=== PATIENT | female | born 2005 | race Caucasian/White ===

== ENCOUNTER 2023-05-07 01:59 | Emergency (ER) | payer OTHER ==
[~2023-05-07] VITALS: Ht 162.6 cm; Wt 68.0 kg
[2023-05-07 02:17] VITALS: TEMP 98.8; O2SAT 99
[2023-05-07] MEDS ORDERED: HYDROCODONE/ACETAMINOPHEN 5/325MG TABLET PO ONE (04:30)
[2023-05-07] MEDS ORDERED: SODIUM CHLORIDE 0.9% 500 ML IV ONE (04:30)
[2023-05-07 05:06] LABS: BASOPHILS % 0.6 % (0.0-2.0); EOSINOPHILS % 0.6 % (0.0-5.0); HEMOGLOBIN. 13.8 g/dL (12.0-16.0); LYMPHOCYTES % 16.7 % (20.0-50.0); MEAN CORPUSCULAR HEMOGLOBIN 32.7 pg (28.0-32.0); MEAN CORPUSCULAR HGB CONC 33.7 g/dL (31.0-37.0); MEAN PLATELET VOLUME 9.5 fl (7.4-10.4); MONOCYTES % 6.7 % (2.0-8.0); NEUTROPHILS % 75.4 % (40.0-76.0); PLATELET 271 x1000/uL (130-400); RED BLOOD CELL COUNT 4.23 mill/uL (4.2-5.4); RED CELL DISTRIBUTION WIDTH 12.7 % (11.6-14.6); WHITE BLOOD COUNT 10.4 x1000/uL (4.5-11.0)
[2023-05-07 05:13] LABS: CHLORIDE 108 mEq/L (98-107); INDEX HEMOLYSI 1 (1-3); INDEX ICTERIC 1 (1-4); INDEX LIPEMIC 1 (1-3); SODIUM 138 mEq/L (136-145)
[2023-05-07 05:20] LABS: CALCIUM 9.2 mg/dL (8.5-10.1); CARBON DIOXIDE 28 mEq/L (21-32); CREATININE 0.6 mg/dL (0.6-1.3); GLUCOSE 107 mg/dL (70-105); UREA NITROGEN BLOOD 9 mg/dL (7-21)
[2023-05-07] MEDS ORDERED: IBUP-2029 MT (05:22)
[2023-05-07 05:29] VITALS: BP 126/79; PULSE 111; RESP 16
[2023-05-07 05:33] LABS: HCG SCREEN NEGATIVE
[2023-05-07] MEDS ORDERED: IOHEXOL-300 100 ML BOTTLE ONE (06:57)
== END 2023-05-07 07:35 | disposition home or self-care (01) ==
LOC: ER 01:59
DX: R07.89 Other chest pain (principal); R51.9 Headache, unspecified
CPT/HCPCS: 70450; 99284; 96360; 71045; 80048; 84703; 85025; 36415; 74177; Q9967; J7040